=== PATIENT | female | born 1970 | race Caucasian/White ===

== ENCOUNTER 2018-05-11 11:06 | Emergency (ER) | payer BC ==
--- NOTE | 2018-05-11 13:24 | RADIOLOGY REPORT (SQ) ---
EXAM DESCRIPTION: FOOT LEFT COMPLETE COMPLETED DATE/TIME: 05/11/2018 12:59 pm REASON FOR STUDY: foot pain COMPARISON: None. NUMBER OF VIEWS: Three views. TECHNIQUE: AP, lateral and oblique radiographic images acquired of the left foot. LIMITATIONS: None. FINDINGS: MINERALIZATION: Normal. BONES: Oblique minimally displaced fracture through the proximal phalanx of the 5th toe JOINTS: No effusions. SOFT TISSUES: Focal soft tissue swelling adjacent to the fracture. OTHER: No other significant finding. IMPRESSION: Fracture of the midshaft of the proximal phalanx of the 5th toe. TECHNICAL DOCUMENTATION: JOB ID: [id number] [email or web address]- All Rights Reserved Reading location - IP/workstation name: [email or web address]
[2018-05-11] MEDS ORDERED: IBUPROFEN 600 MG TABLET PO ONE (13:28)
--- NOTE | 2018-05-11 13:32 | ER Document Report ---
ED Extremity Problem, Lower - General Chief Complaint: Foot Pain Stated Complaint: TOE INJURY Time Seen by Provider: 05/11/18 13:18 Mode of Arrival: Ambulatory Information source: Patient Notes: 47-year-old female presents to ED for complaint of pain in her fifth toe of the left foot. She states she kicked a piece of wood jamming her toe and the pain has not gotten better. He is alert and oriented respirations regular and unlabored speaking in full sentences and is able to walk with a limp due to the pain in her left foot. TRAVEL OUTSIDE OF THE [place] IN LAST 30 DAYS: No - HPI Patient complains to provider of: Injury, Pain, Swelling Location: 5th Toe Occurred: Yesterday Where: Outdoors Onset/Duration: Sudden Quality of pain: Sharp, Throbbing Severity: Moderate Pain Level: 4 Context: Other Recent injury: Yes - Kicked a piece of wood Associated symptoms: Painful ambulation Exacerbated by: Hanging down, Movement, Walking Relieved by: Elevation, Ice, Rest - Related Data Allergies/Adverse Reactions: No Known Allergies Allergy (Unverified 05/11/18 11:08) Past Medical History - General Information source: Patient - Social History Smoking Status: Former Smoker Frequency of alcohol use: Social Drug Abuse: None Occupation: School counselor Family History: Reviewed & Not Pertinent Patient has suicidal ideation: No - Past Medical History Cardiac Medical History: Reports: None Pulmonary Medical History: Reports: Hx Bronchitis, Hx Pneumonia EENT Medical History: Reports: None Neurological Medical History: Reports: None Endocrine Medical History: Reports: None Renal/ Medical History: Reports: None Malignancy Medical History: Reports: None GI Medical History: Reports: None Musculoskeletal Medical History: Reports Hx Musculoskeletal Trauma Skin Medical History: Reports None Psychiatric Medical History: Reports: None Traumatic Medical History: Reports: Hx Fractures - Left fifth toe right arm Infectious Medical History: Reports: None Past Surgical History: Reports: Hx Section, Other - Lazy eye surgery - Immunizations Immunizations up to date: Yes Review of Systems - Review of Systems Constitutional: No symptoms reported EENT: No symptoms reported Cardiovascular: No symptoms reported Respiratory: No symptoms reported Gastrointestinal: No symptoms reported Genitourinary: No symptoms reported Female Genitourinary: No symptoms reported Musculoskeletal: Other - Pain in left fifth toe swelling and bruising Skin: No symptoms reported Hematologic/Lymphatic: No symptoms reported Neurological/Psychological: No symptoms reported -: Yes All other systems reviewed and negative Physical Exam - Vital signs Vitals: Temp Pulse Resp BP Pulse Ox 97.9 F 69 16 97/67 L 100 05/11/18 11:52 05/11/18 11:52 05/11/18 11:52 05/11/18 11:52 05/11/18 11:52 Interpretation: Normal - General General appearance: Appears well, Alert - HEENT Head: Normocephalic, Atraumatic Eyes: Normal Pupils: PERRL - Respiratory Respiratory status: No respiratory distress Chest status: Nontender Breath sounds: Normal Chest palpation: Normal - Cardiovascular Rhythm: Regular Heart sounds: Normal auscultation Murmur: No - Abdominal Inspection: Normal Distension: No distension Bowel sounds: Normal Tenderness: Nontender Organomegaly: No organomegaly - Back Back: Normal, Nontender - Extremities General upper extremity: Normal inspection, Nontender, Normal color, Normal ROM , Normal temperature General lower extremity: Normal ROM, Normal temperature. No: Gila's sign Foot: Tender, Ecchymosis, Edema, No evidence of FB, Other - Pain bruising swelling and discoloration to the left fifth toe and surrounding area. The left fifth toe is fractured proximal shaft - Neurological Neuro grossly intact: Yes Cognition: Normal Orientation: AAOx4 Kindred Coma Scale Eye Opening: Spontaneous Kindred Coma Scale Verbal: Oriented Kindred Coma Scale Motor: Obeys Commands Kindred Coma Scale Total: 15 Speech: Normal Motor strength normal: LUE, RUE, LLE, RLE Sensory: Normal - Psychological Associated symptoms: Normal affect, Normal mood - Skin Skin Temperature: Warm Skin Moisture: Dry Skin Color: Normal Course - Re-evaluation Re-evalutation: 05/11/18 13:42 Patient treated with ibuprofen. Her fourth and fifth toe were sunny taped due to a fracture to the fifth toe. She was given instructions concerning elevation ice ibuprofen for her fifth toe. She was also given the name and number of orthopedics and podiatry for follow-up. - Vital Signs Vital signs: Temp Pulse Resp BP Pulse Ox 97.9 F 69 16 97/67 L 100 05/11/18 11:52 05/11/18 11:52 05/11/18 11:52 05/11/18 11:52 05/11/18 11:52 - Diagnostic Test Radiology reviewed: Image reviewed, Reports reviewed Procedures - Immobilization Left Toe 5th digit Immobilizer type: Other - sunny taping Discharge - Discharge Clinical Impression: Fracture of 5th metatarsal Qualifiers: Encounter type: initial encounter Fracture type: closed Fracture alignment: nondisplaced Laterality: left Qualified Code(s): S92.355A - Nondisplaced fracture of fifth metatarsal bone, left foot, initial encounter for closed fracture Condition: Stable Disposition: HOME, SELF-CARE Additional Instructions: Fractured Toe You have fractured your toe. Although this fracture doesn't need a cast or splint, emergency evaluation was needed to assess the straightness of the bones and joints. Reduction ("setting") is necessary for toe fractures which are crooked or twisted. A toe fracture will heal in about three weeks. Usually, the fractured toe is taped to the next toe. The second toe acts as a moving splint to protect the broken one. Ice and elevation help during the first 48 hours. You may need crutches at first if walking is painful. When you begin walking, be careful NOT to do things that hurt. If weight bearing is not comfortable within a few days, you may require a special shoe, walking boot, or cast. Call the doctor or return at once if severe swelling, severe pain, or numbness develop in the toe, or if you suspect you may have re-injured it. ICE & ELEVATION: Apply ice packs frequently against the painful area. Many different schedules are recommended, such as "20 minutes on, 20 minutes off" or "one hour ice, two hours rest." If you need to work, you may need to go longer between ice treatments. You should plan to have the area ice packed AT LEAST one- fourth of the time. The ice should be applied over the wrap, tape, or splint, or over a layer of cloth -- not directly against the skin. Some ice bags have a built-in cloth and can be put directly on the skin. Your injured part should be elevated as much as possible over the next 48 hours. Try to keep the injury above the level of the heart. Avoid use of the injured area. Elevation and rest will decrease the swelling. USE OF STBY-VHR-FRNJOES IBUPROFEN: Ibuprofen (Advil, Nuprin, Medipren, Motrin IB) is a medication for fever and pain control. In addition, it has anti- inflammatory effects which may be beneficial, especially in the treatment of injuries. It's best to take ibuprofen with food. Persons with ulcer disease or allergy to aspirin should notify their physician of this before taking ibuprofen. Ibuprofen can be given every four to six hours, for a total of four doses daily. Age Pain or fever dose Antiinflammatory dose 6-8 yr 200 mg (1 tab) 200 mg (1 tab) 9-11 yr 200 mg (1 tab) 200-400 mg (1-2 tab) 11-14 yr 200-400 mg (1-2 tab) 400 mg (2 tab) 15-adult 400 mg (2 tab) 600 mg (3 tab) Sunny Taping Your toes have been taped together -- called "sunny taping." The good toe can act as a moving splint to protect the injured toe. You will probably need to keep the tape in place (replacing it when needed) for about three weeks. A firm shoe over the injured toes is usually a good idea. As a general rule, you shouldn't do anything which causes pain to your taped toes. Taping isn't absolute protection, so match your activity to your degree of healing. If you ever suspect that you have re-injured the toe, return for re-examination. Keep the tape dry. Constant wetness harms the skin. Some cotton between the toes may help if perspiration is a problem. Replace the tape as needed when it becomes loose, weak, or dirty. Replace the tape daily if you are sweating. If the toes swell, discolor, or become numb, loosen the tape. Return here if there are problems. FOLLOW-UP CARE: If you have been referred to a physician for follow-up care, call the physician s office for an appointment as you were instructed or within the next two days. If you experience worsening or a significant change in your symptoms, notify the physician immediately or return to the Emergency Department at any time for re-evaluation. Prescriptions: Ibuprofen 600 mg PO Q6HP PRN #30 tablet PRN Reason: Referrals: PEBBLES BOLANOS DPM [ACTIVE STAFF] - Follow up as needed [facility] [Provider Group] - Follow up as needed
[2018-05-11 13:40] VITALS: BP 105/73
== END 2018-05-11 13:40 | disposition home or self-care (01) ==
LOC: ER 11:06
DX: S92.355A Nondisplaced fracture of fifth metatarsal bone, left foot, initial encounter for closed fracture (principal); S90.122A Contusion of left lesser toe(s) without damage to nail, initial encounter; M79.675 Pain in left toe(s); M79.672 Pain in left foot; W22.01XA Walked into wall, initial encounter; Z87.891 Personal history of nicotine dependence
CPT/HCPCS: 99283